=== PATIENT | female | born 1960 | race Caucasian/White ===

== ENCOUNTER 2017-08-01 12:58 | Inpatient (IN) | payer OTHER ==
[~2017-08-01] VITALS: Ht 172.7 cm; Wt 110.2 kg
[2017-08-01 13:54] LABS: BASOPHIL % 0.2 % (0-2); PLATELET COUNT 303 x10^3mcL (130-400); RED CELL DISTRIBUTION WIDTH 12.3 % (11.5-14.5)
[2017-08-01 14:23] LABS: CALCIUM 8.9 mg/dL (8.5-10.1); CARBON DIOXIDE 25.8 mmol/L (21-32); CHLORIDE SERUM 104 mmol/L (98-107); CREATININE SERUM 0.9 mg/dL (0.6-1.0); GFR1 > 60 mL/min; GLUCOSE SERUM 104 mg/dL (74-106); POTASSIUM SERUM 4.2 mmol/L (3.5-5.1); SODIUM SERUM 137 mmol/L (136-145)
[2017-08-01] MEDS ORDERED: LORAZEPAM1 MG PO (14:29)
[2017-08-01] MEDS ORDERED: EFFEXOR-XR37.5 MG PO (14:30)
[2017-08-01] MEDS ORDERED: GEMFIBROZIL600 MG PO (14:30)
[2017-08-01 15:31] LABS: AMYLASE 33 U/L (25-115); HDL CHOLESTEROL 38 mg/dL (40-60); LIPASE 186 IU/L (73-393); PHOSPHOROUS 3.7 mg/dL (2.5-4.9)
[2017-08-01 15:37] LABS: CHOLESTEROL 292 mg/dL (<200); CHOLESTEROL/HDL RATIO 7.7; TRIGLYCERIDES 561 mg/dL (<150)
[2017-08-01 15:39] LABS: FREE T4 0.87 ng/dL (0.76-1.46); FREE THYROXINE INDEX 2.8 ug/dL (1.4-4.5); T4(THYROXINE) 8.8 ug/dL (4.7-13.3)
[2017-08-01 15:50] VITALS: BP 130/71
[2017-08-01 15:51] LABS: T3 TOTAL 1.13 ng/mL
[2017-08-01 15:59] VITALS: Ht 172.7 cm; Wt 110.2 kg
[2017-08-01 21:42] VITALS: BP 116/62
[2017-08-02 05:14] LABS: UA SPECIFIC GRAVITY <=1.005 (1.005-1.035); microscopic required? YES; urine erythrocyte NEGATIVE (NEGATIVE)
[2017-08-02 05:44] LABS: AMPHETAMINE QUAL UR NONE DETECTED (NEG <=1000)
[2017-08-02 05:50] VITALS: BP 127/63
[2017-08-02 06:06] LABS: BASOPHIL % 0.2 % (0-2); PLATELET COUNT 234 x10^3mcL (130-400); RED CELL DISTRIBUTION WIDTH 13.2 % (11.5-14.5)
[2017-08-02 06:28] LABS: CALCIUM 8.6 mg/dL (8.5-10.1); CARBON DIOXIDE 23.7 mmol/L (21-32); CHLORIDE SERUM 106 mmol/L (98-107); CREATININE SERUM 0.9 mg/dL (0.6-1.0); GFR1 > 60 mL/min; GLUCOSE SERUM 107 mg/dL (74-106); MAGNESIUM 2.1 mg/dL (1.8-2.4); PHOSPHOROUS 3.8 mg/dL (2.5-4.9); POTASSIUM SERUM 4.3 mmol/L (3.5-5.1); SODIUM SERUM 138 mmol/L (136-145)
[2017-08-02 09:35] VITALS: BP 139/72
[2017-08-02 13:01] VITALS: BP 154/87
[2017-08-02 14:28] VITALS: BP 154/87
[2017-08-02] MEDS ORDERED: VENLAFAXINE HYD75 M1 PO (15:11)
== END 2017-08-02 15:44 | disposition home or self-care (01) | DRG 880 ==
LOC: ED 12:58 → DU 14:37
PROVIDERS: Emergency Medicine; Family Medicine
DX: F41.0 Panic disorder [episodic paroxysmal anxiety] (principal); N39.0 Urinary tract infection, site not specified; G90.9 Disorder of the autonomic nervous system, unspecified; F41.8 Other specified anxiety disorders; R20.2 Paresthesia of skin; I10 Essential (primary) hypertension; E03.9 Hypothyroidism, unspecified; E78.1 Pure hyperglyceridemia; E78.00 Pure hypercholesterolemia, unspecified; Z68.38 Body mass index [BMI] 38.0-38.9, adult
CPT/HCPCS: 83880; 84439; 99406; J2060; J7030; Q0092